=== PATIENT | male | born 1995 | race African-American/Black ===

== ENCOUNTER 2016-07-29 11:07 | Emergency (ER) | payer OTHER ==
[~2016-07-29] VITALS: Ht 180.3 cm; Wt 128.0 kg
[2016-07-29] MEDS ORDERED: MORPHINE SULFATE 4 MG/ML, 1ML IVPush PRN (12:00)
[2016-07-29] MEDS ORDERED: ONDANSETRON 2MG/ML, 2ML IVPush ONE (12:00)
[2016-07-29] MEDS ORDERED: SODIUM CHLORIDE 0.9% 1,000ML IV ONE (12:00)
[2016-07-29] MEDS ORDERED: SODIUM CHLORIDE FLUSH 10ML SYR IVF ONE (12:00)
[2016-07-29 12:13] LABS: BLOOD UREA NITROGEN 16 mg/dL (7-18)
[2016-07-29] MEDS ORDERED: ONDANSETRON 2MG/ML, 2ML ONE (12:24)
[2016-07-29] MEDS ORDERED: MORPHINE SULFATE 4 MG/ML, 1ML ONE (12:24)
[2016-07-29 15:25] VITALS: BP 156/80
== END 2016-07-29 15:27 | disposition home or self-care (01) ==
LOC: ED 12:57
DX: N20.1 Calculus of ureter (principal); R31.9 Hematuria, unspecified; N23 Unspecified renal colic
CPT/HCPCS: 36415; 74176; 80048; 81001; 82040; 85025; 87086; 96361; 96374; 96375; 99285; J2405; J7030

== ENCOUNTER 2016-07-30 02:51 | Emergency (ER) | payer OTHER ==
[~2016-07-30] VITALS: Ht 180.3 cm; Wt 131.0 kg
[2016-07-30] MEDS ORDERED: ALBUTEROL/IPRATROPIUM 2.5MG/0.5MG, 3 ML ONE (03:22)
[2016-07-30] MEDS: ALBUTEROL/IPRATROPIUM 2.5MG/0.5MG, 3 ML NPPB SCH (03:30)
[2016-07-30 05:10] VITALS: BP 138/84
== END 2016-07-30 05:12 | disposition home or self-care (01) ==
LOC: ED 03:42
DX: J45.901 Unspecified asthma with (acute) exacerbation (principal)
CPT/HCPCS: 71020; 93005; 94640; J7620